=== PATIENT | female | born 1995 | race Hispanic/Latino ===

== ENCOUNTER 2017-12-26 17:54 | Emergency (ER) | payer MEDICAID, OTHER ==
[~2017-12-26 17:54] MED LIST: IBUP-2070 PO; IRON-10 PO; PREN1TAB89 PO
== END 2017-12-26 19:27 | disposition home or self-care (01) ==
LOC: EDH 17:54
DX: J02.9 Acute pharyngitis, unspecified (principal); J30.9 Allergic rhinitis, unspecified
CPT/HCPCS: 87880

== ENCOUNTER 2018-12-25 11:12 | Emergency (ER) | payer SELFPAY | END 2018-12-25 11:24 | disposition home or self-care (01) | LOC: EDH 11:12 | DX: Z20.2 Contact with and (suspected) exposure to infections with a predominantly sexual mode of transmission (principal); Z90.49 Acquired absence of other specified parts of digestive tract; Z98.890 Other specified postprocedural states; Z72.0 Tobacco use | CPT/HCPCS: 99281 ==

== ENCOUNTER 2019-08-05 20:09 | Emergency (ER) | payer OTHER | END 2019-08-05 21:58 | disposition home or self-care (01) | LOC: EDH 20:09 | DX: J06.9 Acute upper respiratory infection, unspecified (principal); Z90.49 Acquired absence of other specified parts of digestive tract; Z98.890 Other specified postprocedural states ==

== ENCOUNTER 2020-11-11 18:57 | Emergency (ER) | payer OTHER ==
[2020-11-11] MEDS ORDERED: SULFAMETHOX-TMP DS 800/160 TAB ONE (20:28)
== END 2020-11-11 21:38 | disposition home or self-care (01) ==
LOC: EDH 18:57
DX: L02.213 Cutaneous abscess of chest wall (principal); M25.561 Pain in right knee; Z86.16 Personal history of COVID-19
CPT/HCPCS: 10060; 73562

== ENCOUNTER 2021-05-05 22:11 | Emergency (ER) | payer OTHER ==
[~2021-05-05] VITALS: Ht 157.5 cm; Wt 104.3 kg
[2021-05-05] MEDS ORDERED: ONDANSETRON 4MG INJ IVP ONE (23:00)
[2021-05-05] MEDS ORDERED: KETOROLAC 30MG VIAL (30MG/ML) IVP ONE (23:00)
[2021-05-05] MEDS ORDERED: 0.9%NACL 1000ML 1,000 ML IV ONE (23:00)
[2021-05-05 23:09] LABS: BASOPHILS % (AUTO) 1.5 % (0.0-5.0); EOSINOPHILS % (AUTO) 1.3 % (0.0-8.0); HEMATOCRIT 35.8 % (36-48); LYMPHOCYTES % (AUTO) 67.9 % (21.0-51.0); MEAN CORPUSCULAR HEMOGLOBIN 30.4 pg (27.0-33.0); MEAN CORPUSCULAR HGB CONC 33.5 g/dL (32.0-36.0); MEAN CORPUSCULAR VOLUME 90.6 fL (79-99); MONOCYTES % (AUTO) 4.9 % (3.0-13.0); NEUTROPHILS % (AUTO) 24.2 % (40.0-77.0); PLATELET COUNT (AUTO) 164 K/uL (130-400); RED BLOOD CELL COUNT(AUTO) 3.95 MIL/uL (4.00-5.50); RED CELL DISTRIBUTION WIDTH 12.6 % (11.0-15.5); WHITE BLOOD COUNT (AUTO) 8.5 K/uL (4.8-10.8)
[2021-05-05 23:10] LABS: APPEARANCE,URINE CLEAR (CLEAR); BILIRUBIN,URINE NEGATIVE (NEGATIVE); COLOR,URINE YELLOW (YELLOW); GLUCOSE, URINE (UA) NEGATIVE (NEGATIVE); KETONES,URINE NEGATIVE (NEGATIVE); LEUKOCYTE ESTERASE ,URINE MODERATE (NEGATIVE); NITRATE,URINE NEGATIVE (NEGATIVE); OCCULT BLOOD,URINE TRACE-INTACT (NEGATIVE); PROTEIN,URINE NEGATIVE (NEGATIVE)
[2021-05-05 23:17] LABS: BACTERIA,URINE Few /HPF (None Seen); RBC,URINE 0-1 /HPF (0-1); TRICHOMONAS,URINE Moderate /LPF (None Seen)
[2021-05-05 23:18] LABS: SQUAMOUS EPITHELIAL CELL,UR Moderate /HPF (0-2)
[2021-05-05] MEDS ORDERED: ZOSYN 3.375GM+NS 50ML 3.38 GM in 0.9%NACL 50ML 50 ML IV STA ×2 (23:20→23:22)
[2021-05-05 23:23] LABS: CREATININE 0.8 mg/dL (0.5-1.5); POTASSIUM 3.9 mmol/L (3.5-5.1)
[2021-05-05] MEDS ORDERED: METRONIDAZOLE 500MG/100ML BAG 100 ML IVPB STA (23:27)
[2021-05-05 23:28] LABS: ALBUMIN 2.4 g/dL (3.5-5.0); BILIRUBIN,TOTAL 0.3 mg/dL (0.2-1.0)
[2021-05-05] MEDS ORDERED: METRONIDAZOLE 500MG/100ML BAG 100 ML ONE (23:34)
[2021-05-05] MEDS ORDERED: ZOSYN 3.375GM+NS 50ML 50 ML ONE (23:34)
[2021-05-05] MEDS ORDERED: 0.9%NACL 50ML 50 ML IV ONE (23:35)
[2021-05-05] MEDS ORDERED: AMOX-429 PO (23:45)
[2021-05-05] MEDS ORDERED: IBUP-2088 PO (23:45)
[2021-05-05] MEDS ORDERED: 0.9%NACL 1000ML 1,000 ML IV STA (23:52)
[2021-05-06 01:58] VITALS: BP 129/63
== END 2021-05-06 02:05 | disposition home or self-care (01) ==
LOC: EDH 22:11
DX: N39.0 Urinary tract infection, site not specified (principal); A59.9 Trichomoniasis, unspecified; Z79.1 Long term (current) use of non-steroidal anti-inflammatories (NSAID); Z79.899 Other long term (current) drug therapy; Z90.49 Acquired absence of other specified parts of digestive tract
CPT/HCPCS: 36415 ×2; 80053; 81001; 83605 ×2; 84703; 85025; 87040 ×2; 87088; 96365; 96367; 96375; 99284; J1885; J2405; J2543 ×2; J3490; J7030 ×2

== ENCOUNTER 2022-12-18 08:23 | Observation (INO) | payer BC, MEDICAID ==
[~2022-12-18] VITALS: Ht 157.5 cm; Wt 138.3 kg
[~2022-12-18 08:23] MED LIST changes: +AMOX-429 PO; +IBUP-2088 PO
[2022-12-18 08:26] VITALS: BP 121/77
[2022-12-18 08:59] LABS: APPEARANCE,URINE CLOUDY (CLEAR); BILIRUBIN,URINE NEGATIVE (NEGATIVE); COLOR,URINE YELLOW (YELLOW); GLUCOSE, URINE (UA) NEGATIVE (NEGATIVE); KETONES,URINE 20 mg/dL (NEGATIVE); LEUKOCYTE ESTERASE ,URINE 500 Leu/uL (NEGATIVE); NITRATE,URINE NEGATIVE (NEGATIVE); OCCULT BLOOD,URINE SMALL (NEGATIVE); PROTEIN,URINE 50 mg/dL (NEGATIVE)
[2022-12-18] MEDS: LACTATED RINGERS 1000ML 1,000 ML IV SCH ×2 (09:15→10:07)
[2022-12-18 09:34] LABS: BACTERIA,URINE RARE /HPF (None Seen); MUCUS,URINE RARE LPF (None Seen); SQUAMOUS EPITHELIAL CELL,UR MANY /HPF (0-2)
[2022-12-18] MEDS ORDERED: ONDANSETRON 4MG INJ IVP ONE (10:00)
[2022-12-18] MEDS ORDERED: PANTOPRAZOLE 40 MG/VIAL IVP ONE (10:00)
== END 2022-12-18 12:55 | disposition home or self-care (01) ==
LOC: EDH 08:23 → LDH 08:24
PROVIDERS: ADMIT Obstetrics & Gynecology; ATTEND Obstetrics & Gynecology
DX: O21.2 Late vomiting of pregnancy (principal); O26.892 Other specified pregnancy related conditions, second trimester; R05.9 Cough, unspecified; R19.7 Diarrhea, unspecified; Z3A.23 23 weeks gestation of pregnancy; Z79.899 Other long term (current) drug therapy
CPT/HCPCS: 96374; 96361 ×2; 96375; 59025; 87088; 87804 ×2; 81001; 87635; G0378 ×4; G0379; J7120 ×3; J2405; C9113 ×2; 96360